=== PATIENT | male | born 1955 | race Caucasian/White ===

== ENCOUNTER 2020-10-18 19:12 | Emergency (ER) | payer MEDICARE, MEDICAID ==
[~2020-10-18] VITALS: Ht 180.3 cm; Wt 200.0 kg
[2020-10-18 19:59] VITALS: BP 153/74
== END 2020-10-18 23:17 | disposition left against medical advice (07) ==
LOC: ER 19:12
DX: R10.9 Unspecified abdominal pain (principal); Z53.21 Procedure and treatment not carried out due to patient leaving prior to being seen by health care provider